=== PATIENT | female | born 1980 | race Caucasian/White ===

== ENCOUNTER 2016-07-28 05:26 | Inpatient (IN) | payer BC, MEDICAID ==
[2016-07-28] MEDS ORDERED: LACTATED RINGERS 1,000 ML ONE (05:28)
[2016-07-28] MEDS ORDERED: PITOCin/NS 20 UNIT/1000ML DRIP 20,000 MILLIUNITS/1,000 ML BAG IV ONE (05:30)
[2016-07-28] MEDS ORDERED: MINERAL OIL ONE (05:34)
[2016-07-28] MEDS ORDERED: XYLOCAINE 2% INFILTRATI ONE ×2 (05:39→06:31)
[2016-07-28] MEDS ORDERED: CYTOTEC ONE (05:47)
[2016-07-28] MEDS ORDERED: SUBLIMAZE ONE (05:48)
[2016-07-28] MEDS ORDERED: CYTOTEC PR ONE (05:50)
--- NOTE | 2016-07-28 06:27 | History and Physical Report ---
History of Present Illness Date of examination: 07/28/16 Date of admission: 07/28/16 05:28 Chief complaint: CONTRACTIONS History of present illness: This is a 35 yo at 39+6 weeks came in active labor. She presented to [facility] and delivery 1. OB problems list AMA Obesity Glucose intolerance GTT neg GBS+ labs: A+ antibody neg h/h 11.9/36 pap normal Rubella IMM RPR NR urine culture neg Hep neg HIV neg PLT 361 HSV2 neg AAGC neg chlam neg CF neg 12/2015 single iup ega 13=26 AUA 11 weeks EDC changed to 07/29/16 MT21 neg H/H 10.9/33.8 DM 153 fasting 94, 1hr 145, 2hr 163, 3hr 112 Plt 351 au EGA 35+6 weeks AUA 37 weeks 3159g BPP 11/30 haven neg chlam neg GBS + Past History Past Medical History: no pertinent history Past Surgical History: appendectomy, other (breast biopsy) Family/Genetic History: diabetes, cancer (ovarian) Social history: . denies: smoking, alcohol abuse - Obstetrical History Expected Date of Delivery: 07/29/16 Actual Gestation: 39 Week(s) 6 Day(s) : 2 Para: 2 Hx # Term Pregnancies: 2 Number of Pregnancies: 0 Spontaneous Abortions: 0 Induced : 0 Number of Living Children: 2 Medications and Allergies Allergies Allergy/AdvReac Type Severity Reaction Status Date / Time No Known Allergies Allergy Verified 07/28/16 05:59 Active Meds: Active Medications Influenza Virus Vaccine Quadrival (Fluarix Quad 3071-6547(36 Mos+)) 60 mcg IM .ONCE ONE Stop: 07/28/16 12:01 Review of Systems All systems: negative Constitutional: weight gain Genitourinary: contractions, no vaginal bleeding, no leakage of fluid - Vital Signs Vital signs: Vital Signs Pulse BP 79 135/79 07/28/16 05:31 07/28/16 05:31 Temp Pulse Resp BP Pulse Ox 96.8 F L 93 H 20 112/58 07/28/16 06:14 07/28/16 06:15 07/28/16 06:14 07/28/16 06:15 - Physical Exam Breasts: Positive: deferred, normal Cardiovascular: Regular rate, Normal S1, Normal S2 Lungs: Positive: Clear to auscultation, Normal air movement Abdomen: Positive: normal appearance, soft, normal bowel sounds. Negative: distention, tenderness Genitourinary (Female): Positive: normal external genitalia, normal perenium Vulva: both: normal Vagina: Positive: normal moisture Uterus: Positive: enlarged Deep Tendon Reflex Grade: Normal +2 - Obstetrical FHR: category 1 Uterine Contraction Monitor Mode: Palpation Cervical Dilatation: 9 Cervical Effacement Percentage: 100 station: +1 Uterine Contraction Pattern: Regular Uterine Tone Measurement Phase: Contraction Uterine Contraction Intensity: Moderate Results All other labs normal. Assessment and Plan A/P HD#1 Active labor, advance dilation, term , ivf, reviewed chart initial labs expect vaginal delivery GBS+ ampicillin given
[2016-07-28] MEDS ORDERED: BRETHINE IVP PRN (06:31)
[2016-07-28] MEDS ORDERED: SUBLIMAZE IV PRN (06:31)
[2016-07-28] MEDS ORDERED: NARCAN 0.4 MG/1 ML IV PRN (06:31)
[2016-07-28] MEDS ORDERED: MINERAL OIL PO PRN (06:31)
[2016-07-28] MEDS ORDERED: ZOFRAN IV PRN ×2 (06:31→06:35)
[2016-07-28] MEDS ORDERED: POLYCILLIN/NS 2 GM/100 ML 2 GM/100 ML BAG IV ONE (06:31)
[2016-07-28] MEDS ORDERED: BRETHINE SUB-Q PRN (06:31)
[2016-07-28] MEDS ORDERED: PHENERGAN PO PRN ×2 (06:31→06:35)
[2016-07-28] MEDS ORDERED: ePHEDrine SULFATE IV PRN (06:31)
[2016-07-28] MEDS ORDERED: TUCKS PAD TP PRN (06:35)
[2016-07-28] MEDS ORDERED: ANUCORT-HC PR PRN (06:35)
[2016-07-28] MEDS ORDERED: PHENERGAN PR PRN (06:35)
[2016-07-28] MEDS ORDERED: DULCOLAX PR PRN (06:35)
[2016-07-28] MEDS ORDERED: NORCO 5/325 PO PRN (06:35)
[2016-07-28] MEDS ORDERED: PERCOCET 5/325 PO PRN (06:35)
[2016-07-28] MEDS ORDERED: BENADRYL PO PRN (06:35)
[2016-07-28] MEDS ORDERED: TORADOL IV PRN (06:35)
[2016-07-28] MEDS ORDERED: TYLENOL PO PRN (06:35)
[2016-07-28] MEDS ORDERED: DERMOPLAST TP PRN (06:35)
[2016-07-28] MEDS ORDERED: MILK OF MAGNESIA PO PRN (06:35)
[2016-07-28] MEDS ORDERED: LANSINOH TP PRN (06:35)
--- NOTE | 2016-07-28 06:44 | Procedure Note ---
OB Delivery Note - Delivery Date of Delivery: 07/28/16 Surgeon: DEON BARBA Estimated blood loss: other (400cc) - Vaginal Delivery presentation: vertex Delivery position: OA Intrapartum events: precipitous labor- <3hr Delivery induction: none Delivery monitor: none Route of delivery: Delivery placenta: spontaneous Delivery cord: 3 umbilical vessels Episiotomy: none Delivery laceration: 1st degree Delivery repair: vicryl Anesthesia: none Delivery comments: Patient was noted to be c/c/+1 and commneced to pushing and delivered a viable female Apgars 8 and 9 weight 8 pounds 13oz =4002g at 0540 . The shoulders delivered easily. The baby was suction nasopharynx and oropharynx . The cord was cut and clamped and placed on mother chest. The placenta was delivered at 0551 intact with 3 vessel cord. A 2nd degree lac reppaired with 2- 0 vicryl in normal fashion. EBL 400cc. Patient tolerated procedure well. Mom and baby bonding well.
[2016-07-28 06:57] LABS: Hematocrit 39.3 % (30.3-42.9)
[2016-07-28] MEDS ORDERED: PITOCin/NS 20 UNIT/1000ML DRIP 20 UNITS/1,000 ML BAG IV SCH (07:00)
[2016-07-28] MEDS ORDERED: PITOCin/NS 30 UNIT/500ML 30 UNITS/500 ML BAG IV SCH ×2 (07:00)
[2016-07-28] MEDS ORDERED: SODIUM CHLORIDE FLUSH SYRINGE 10 ML IV PRN (07:00)
[2016-07-28] MEDS ORDERED: LACTATED RINGERS 1,000 ML IV SCH (07:00)
[2016-07-28] MEDS ORDERED: FLUARIX QUAD 2016-2017(36 MOS+) IM ONE (12:00)
[2016-07-28] MEDS: MOTRIN PO SCH ×2 (12:45→18:00)
[2016-07-28 18:54] LABS: Hematocrit 33.4 % (30.3-42.9); Hemoglobin 11.2 gm/dl (10.1-14.3)
[2016-07-28] MEDS: SENOKOT S PO SCH (21:47)
[2016-07-28] MEDS: COLACE PO SCH (21:47)
[2016-07-29] MEDS ORDERED: BOOSTRIX IM ONE (06:00)
--- NOTE | 2016-07-29 08:51 | Progress Note ---
Assessment and Plan O: VSS AF PP H.H: 11.2/33.4 A: stable PP Day 1 P: D/C home routine orders Subjective - Subjective Date of service: 07/29/16 Patient reports: appetite normal, voiding normally, pain well controlled, flatus , ambulating normally [place]: doing well, nursing well Objective - Vital Signs Latest vital signs: Vital Signs Temp Pulse Resp BP 07/28/16 23:20 98.6 F 84 16 117/61 07/28/16 18:06 98.1 F 80 20 114/61 07/28/16 11:25 98.3 F 84 18 132/64 Intake and Output 07/28/16 07/29/16 07/29/16 22:59 06:59 14:59 Intake Total 560 240 Output Total 1500 Balance -940 240 Intake: Oral 360 Intake, Free Water 200 240 Output: Urine 1500 Void 1500 Other: Total, Intake Amount 360 Total, Output Amount 700 # Voids Void 1 - Exam Breasts: Present: deferred Lungs: Present: Normal air movement Abdomen: Present: normal appearance, soft. Absent: distention, tenderness Vulva: both: normal Uterus: Present: normal, firm. Absent: bogginess, tenderness, fundal height below umbilicus Extremities: Present: normal
--- NOTE | 2016-07-29 08:54 | Discharge Summary ---
Providers - Providers Date of Admission: 07/28/16 05:28 Date of discharge: 07/29/16 Attending physician: DEON BARBA MD Primary care physician: [employer]OL ROOM ATTENDANT Hospitalization Reason for admission: active labor, IUP at term Delivery: Episiotomy: none Laceration: 2nd degree Incision: normal Other procedures: none complications: none Discharge diagnosis: IUP at term delivered baby: female Condition at discharge: Good Disposition: DISCHARGED TO HOME OR SELFCARE Plan - Discharge Medications Prescriptions: Ibuprofen [Motrin 600 MG tab] 600 mg PO Q6HR PRN #30 tablet PRN Reason: Pain - Provider Discharge Summary Activity: routine, no sex for 6 weeks, no heavy lifting 4 weeks, no strenuous exercise Diet: routine Instructions: routine Additional instructions: [] Smoking cessation referral if applicable(refer to patient education folder for contact #) [] Refer to [facility]'s [facility] Booklet Call your doctor immediately for: * Fever > 100.5 * Heavy vaginal bleeding ( >1 pad per hour) * Severe persistent headache * Shortness of breath * Reddened, hot, painful area to leg or breast * Drainage or odor from incision. * Keep incision clean and dry at all times and follow doctor's instructions regarding bathing/showering - Follow up plan Follow up: PRIMARY CARE, [Primary Care Provider] - DOMINICK ANDERSON CNM [Advanced Practice Nurse] - (RTO 4 weeks PP)
[2016-07-29] MEDS: MOTRIN PO SCH ×2 (12:45)
[2016-07-29] MEDS: PRENATAL VITAMIN PO SCH (12:45)
[2016-07-29] MEDS: COLACE PO SCH (12:45)
[2016-07-30] MEDS: COLACE PO SCH ×2 (01:39→11:31)
[2016-07-30] MEDS: SENOKOT S PO SCH (01:39)
[2016-07-30 08:57] VITALS: BP 107/63
[2016-07-30] MEDS: MOTRIN PO SCH (11:31)
[2016-07-30] MEDS: PRENATAL VITAMIN PO SCH (11:31)
== END 2016-07-30 11:50 | disposition home or self-care (01) | DRG 775 ==
LOC: TRG 05:26 → LD 05:28 → OB 07:36
PROVIDERS: ADMIT Obstetrics & Gynecology; ATTEND Obstetrics & Gynecology
PROC: 10E0XZZ Delivery of Products of Conception, External Approach (ICD-10-PCS; principal; 2016-07-28)
PROC: 0KQM0ZZ Repair Perineum Muscle, Open Approach (ICD-10-PCS; 2016-07-29)
DX: O99.824 Streptococcus B carrier state complicating childbirth (principal); Z68.41 Body mass index [BMI] 40.0-44.9, adult; O62.3 Precipitate labor; O99.214 Obesity complicating childbirth; E66.9 Obesity, unspecified; O70.1 Second degree perineal laceration during delivery; Z3A.49 Greater than 42 weeks gestation of pregnancy; Z3A.39 39 weeks gestation of pregnancy; O09.523 Supervision of elderly multigravida, third trimester; Z37.0 Single live birth
CPT/HCPCS: 36415; 85014; 85018; 86850; 86900; 86901; 90471; 90686; 90715; 99211; G0463; J2590; J3010; J7120